=== PATIENT | female | born 1930 | race Caucasian/White ===

== ENCOUNTER → 2017-03-22 09:13 | Outpatient (CLI) | payer OTHER | END | disposition home or self-care (01) | LOC: LAB 09:13 | DX: I11.9 Hypertensive heart disease without heart failure (principal) ==

== ENCOUNTER → 2017-03-24 | Outpatient (CLI) | payer OTHER | END | disposition home or self-care (01) | LOC: RAD 10:17 | DX: M25.572 Pain in left ankle and joints of left foot (principal) ==

== ENCOUNTER 2017-05-06 14:06 | Outpatient (CLI) | payer OTHER | END 2017-05-06 14:09 | disposition home or self-care (01) | LOC: NUCLEAR 14:06 | DX: M81.0 Age-related osteoporosis without current pathological fracture (principal) ==

== ENCOUNTER 2017-09-27 10:53 | Outpatient (CLI) | payer OTHER | END 2017-09-27 12:41 | disposition home or self-care (01) | LOC: MAMO-SONO 10:53 → TOM 12:15 → MAMO-SONO 12:41 | DX: Z12.31 Encounter for screening mammogram for malignant neoplasm of breast (principal); Z87.898 Personal history of other specified conditions; N64.59 Other signs and symptoms in breast ==

== ENCOUNTER 2017-10-19 10:37 | Outpatient (CLI) | payer OTHER | END 2017-10-19 10:51 | disposition home or self-care (01) | LOC: RAD 10:37 | DX: R92.1 Mammographic calcification found on diagnostic imaging of breast (principal); R07.89 Other chest pain ==

== ENCOUNTER 2017-10-22 09:33 | Outpatient (CLI) | payer OTHER | END 2017-10-22 16:13 | disposition home or self-care (01) | LOC: TOM 09:33 | DX: R97.0 Elevated carcinoembryonic antigen [CEA] (principal) ==

== ENCOUNTER 2017-11-05 08:56 | Outpatient (CLI) | payer OTHER | END 2017-11-05 09:09 | disposition home or self-care (01) | LOC: SONOGRAMA 08:56 | DX: K80.20 Calculus of gallbladder without cholecystitis without obstruction (principal) ==

== ENCOUNTER 2018-02-18 11:03 | Outpatient (CLI) | payer OTHER | END 2018-02-18 11:09 | disposition home or self-care (01) | LOC: SONOGRAMA 11:03 | DX: R10.9 Unspecified abdominal pain (principal); N18.3 Chronic kidney disease, stage 3 (moderate); R31.9 Hematuria, unspecified ==

== ENCOUNTER → 2018-10-19 | Outpatient (CLI) | payer OTHER | END | disposition home or self-care (01) | LOC: TOM 07:15 | DX: D64.89 Other specified anemias (principal); K62.5 Hemorrhage of anus and rectum; R19.5 Other fecal abnormalities; K57.90 Diverticulosis of intestine, part unspecified, without perforation or abscess without bleeding; K63.5 Polyp of colon ==

== ENCOUNTER 2019-09-01 11:07 | Outpatient (CLI) | payer OTHER | END 2019-09-01 11:16 | disposition home or self-care (01) | LOC: RAD 11:07 | DX: M54.2 Cervicalgia (principal); M25.511 Pain in right shoulder ==

== ENCOUNTER → 2019-10-26 | Outpatient (CLI) | payer OTHER | END | disposition home or self-care (01) | LOC: SONOGRAMA 10:39 | DX: N28.89 Other specified disorders of kidney and ureter (principal) ==

== ENCOUNTER 2020-05-07 12:42 | Inpatient (IN) | payer OTHER ==
[~2020-05-07] VITALS: Ht 162.6 cm; Wt 77.1 kg
[2020-05-07] MEDS ORDERED: DILTIAZEM 24HR240 MG (13:07)
[2020-05-07] MEDS ORDERED: GABAPENTIN800 M1 (13:07)
[2020-05-07] MEDS ORDERED: OMEPRAZOLE40 MG (13:08)
[2020-05-07] MEDS ORDERED: SIMVASTATIN5 MG (13:08)
[2020-05-07] MEDS ORDERED: AVAPRO150 MG (13:08)
[2020-05-07] MEDS ORDERED: DRAMAMINE LESS25 MG (13:09)
[2020-05-07] MEDS ORDERED: MECLIZINE HCL12.5 MG (13:09)
[2020-05-08] MEDS ORDERED: DICLOFENAC SODI75 MG (08:22)
[2020-05-08] MEDS ORDERED: LUMIGAN2.5 M1 (08:22)
[2020-05-08] MEDS ORDERED: LISINOPRIL40 MG (08:23)
[2020-05-08] MEDS ORDERED: HYDROCHLOROTH12.5 MG (08:23)
[2020-05-08] MEDS ORDERED: IRBESARTAN-HCT1 EACH (08:23)
== END 2020-05-10 11:26 | disposition home or self-care (01) | DRG 842 ==
LOC: ER 12:42 → MEDI 17:19 → SEC-K 17:19 → MEDI 05-08 02:18
PROVIDERS: ADMIT Internal Medicine; ATTEND Internal Medicine
PROC: 30233N1 Transfusion of Nonautologous Red Blood Cells into Peripheral Vein, Percutaneous Approach (ICD-10-PCS; principal; 2020-05-07)
DX: C90.00 Multiple myeloma not having achieved remission (principal); D63.0 Anemia in neoplastic disease; D63.1 Anemia in chronic kidney disease; N18.30 Chronic kidney disease, stage 3 unspecified; I12.9 Hypertensive chronic kidney disease with stage 1 through stage 4 chronic kidney disease, or unspecified chronic kidney disease; Z20.822 Contact with and (suspected) exposure to COVID-19

== ENCOUNTER 2020-06-27 10:26 | Inpatient (IN) | payer OTHER ==
[~2020-06-27] VITALS: Ht 162.6 cm; Wt 77.1 kg
[~2020-06-27 10:26] MED LIST: AVAPRO150 MG; DICLOFENAC SODI75 MG; DILTIAZEM 24HR240 MG; DRAMAMINE LESS25 MG; GABAPENTIN800 M1; HYDROCHLOROTH12.5 MG; IRBESARTAN-HCT1 EACH; LISINOPRIL40 MG; LUMIGAN2.5 M1; MECLIZINE HCL12.5 MG; OMEPRAZOLE40 MG; SIMVASTATIN5 MG
--- NOTE | 2020-06-27 10:51 | NUR ---
PACIENTE ALERTA Y ORIENTADA, ACOMPANADA DE H[place], CAMIN[place]O CON [place]. REFIERE TIENE AZUCAR EFREN. SE MIDE S/V, SE REPORTA. SE REALIZA DEXTRO EL CUAL INDICA, HIGH MAYOR DE 600. SE PRESENTA A DR. BO Y SE UBICA EN CAMA 13 EN HELGA DE OBSERVACION.
--- NOTE | 2020-06-27 13:05 | NUR ---
SE ORIENTA A PACIENTE SOBRE TRATAMIENTO ORDENADO POR DR. MORAN, LA MISMA VERBALIZA ENTENDER. SE COLECTAN MUESTRAS ORDENADAS, SE ADMINISTRAN MEDICAMENTOS Y SE COLOCA VENOPUNCION PATENTE, ARIANNA DE ERITEMA Y EDEMA, Y SE CONECTA TERAPIA DE IVF'S. PENDIENTE RESULTADOS DE LABORATORIOS. SE MANTIENE PTE EN OBSERVACION POR CAMBIOS.
[2020-07-02] MEDS ORDERED: DAFLONEX-XL 11300 MG (15:44)
[2020-07-02] MEDS ORDERED: HYDROCHLOROTH12.5 MG (15:44)
[2020-07-02] MEDS ORDERED: DEXAMETHASONE4 MG (15:45)
[2020-07-02] MEDS ORDERED: LUMIGAN2.5 M1 (15:45)
[2020-07-02] MEDS ORDERED: MECLIZINE HCL12.5 MG (15:45)
[2020-07-04] MEDS ORDERED: DILTIAZEM HCL30 MG PO (16:16)
[2020-07-04] MEDS ORDERED: FAMOTIDINE20 MG PO (16:16)
== END 2020-07-04 17:14 | disposition home or self-care (01) | DRG 682 ==
LOC: ER 10:26 → ICU-2 21:25 → ICU 07-01 02:17 → MEDI 07-02 18:15
PROVIDERS: ADMIT Internal Medicine; ATTEND Internal Medicine
PROC: 4A033R1 Measurement of Arterial Saturation, Peripheral, Percutaneous Approach (ICD-10-PCS; 2020-06-27)
PROC: B0201ZZ Computerized Tomography (CT Scan) of Brain using Low Osmolar Contrast (ICD-10-PCS; principal; 2020-06-28)
PROC: B24BZZZ Ultrasonography of Heart with Aorta (ICD-10-PCS; 2020-06-28)
PROC: 4A12X4Z Monitoring of Cardiac Electrical Activity, External Approach (ICD-10-PCS; 2020-07-01)
DX: N17.8 Other acute kidney failure (principal); E11.00 Type 2 diabetes mellitus with hyperosmolarity without nonketotic hyperglycemic-hyperosmolar coma (NKHHC); C90.00 Multiple myeloma not having achieved remission; E11.65 Type 2 diabetes mellitus with hyperglycemia; N18.30 Chronic kidney disease, stage 3 unspecified; E86.0 Dehydration; I10 Essential (primary) hypertension

== ENCOUNTER 2021-01-01 12:46 | Inpatient (IN) | payer OTHER ==
[~2021-01-01] VITALS: Ht 162.6 cm; Wt 71.2 kg
[~2021-01-01 12:46] MED LIST changes: +DAFLONEX-XL 11300 MG; +DEXAMETHASONE4 MG; +DILTIAZEM HCL30 MG PO; +FAMOTIDINE20 MG PO
[2021-01-03] MEDS ORDERED: FEROCON CAPSUL1 EACH PO (09:09)
== END 2021-01-03 10:37 | disposition home or self-care (01) | DRG 812 ==
LOC: MEDI 12:46 → SEC-K 12:46 → MEDJ 15:23 → SEC-K 15:58 → MEDI 17:41
PROVIDERS: ADMIT Internal Medicine Hematology & Oncology; ATTEND Internal Medicine Hematology & Oncology
PROC: 30233N1 Transfusion of Nonautologous Red Blood Cells into Peripheral Vein, Percutaneous Approach (ICD-10-PCS; principal; 2021-01-01)
DX: D64.9 Anemia, unspecified (principal); D47.2 Monoclonal gammopathy; D50.8 Other iron deficiency anemias; N18.31 Chronic kidney disease, stage 3a; D69.6 Thrombocytopenia, unspecified; Z20.822 Contact with and (suspected) exposure to COVID-19; Z79.4 Long term (current) use of insulin; E11.22 Type 2 diabetes mellitus with diabetic chronic kidney disease